=== PATIENT | female | born 1990 | race Two or more races ===

== ENCOUNTER 2017-11-16 16:31 | Emergency (ER) | payer OTHER ==
[~2017-11-16] VITALS: Ht 165.1 cm; Wt 96.2 kg
[2017-11-16 17:00] VITALS: BP 135/86
== END 2017-11-16 20:21 | disposition home or self-care (01) ==
LOC: ER 16:38
DX: J02.9 Acute pharyngitis, unspecified (principal)

== ENCOUNTER 2021-07-10 11:39 | Emergency (ER) | payer BC, OTHER ==
[~2021-07-10] VITALS: Ht 165.1 cm; Wt 97.5 kg
[2021-07-10] MEDS ORDERED: ACETAMINOPHEN 325 MG TAB PO ONE (12:00)
[2021-07-10] MEDS ORDERED: ACETAMINOPHEN 500 MG TAB PO ONE (12:45)
[2021-07-10] MEDS ORDERED: cefTRIAXone SOD 1,000 MG VL IM ONE (14:00)
[2021-07-10 14:22] VITALS: BP 130/72
== END 2021-07-10 15:02 | disposition home or self-care (01) ==
LOC: ER 11:39
DX: J02.9 Acute pharyngitis, unspecified (principal); T50.Z95A Adverse effect of other vaccines and biological substances, initial encounter; Y92.89 Other specified places as the place of occurrence of the external cause
CPT/HCPCS: 71046; 96372; 99283; J0696